=== PATIENT | female | born 1995 | race African-American/Black ===

== ENCOUNTER 2019-02-02 10:29 | Observation (INO) | payer MEDICAID ==
[~2019-02-02] VITALS: Ht 162.6 cm; Wt 104.3 kg
[2019-02-02] MEDS ORDERED: FERR325T6 PO (11:17)
[2019-02-02] MEDS ORDERED: FOLI-43 PO (11:17)
[2019-02-02] MEDS ORDERED: ASPI-1159 PO (11:17)
[2019-02-02] MEDS ORDERED: PNV1TABL50 PO (11:17)
[2019-02-02] MEDS ORDERED: LACTATED RINGERS 1,000 ML IV SCH (11:45)
[2019-02-02 12:24] LABS: CLARITY URINE CLEAR (CLEAR); COLOR URINE YELLOW (YELLOW); KETONES URINE NEGATIVE (NEGATIVE); LEUKOCYTE ESTERASE URINE NEGATIVE (NEGATIVE); NITRITE URINE NEGATIVE (NEGATIVE); OCCULT BLOOD URINE 2+ (NEGATIVE); PROTEIN URINE NEGATIVE (NEGATIVE); SPECIFIC GRAVITY URINE 1.012 (1.005-1.030)
== END 2019-02-02 14:50 | disposition home or self-care (01) ==
LOC: 8 EST LDRP 10:29
PROVIDERS: ADMIT Specialist; ATTEND Specialist
DX: O26.892 Other specified pregnancy related conditions, second trimester (principal); R10.30 Lower abdominal pain, unspecified; O42.912 Preterm premature rupture of membranes, unspecified as to length of time between rupture and onset of labor, second trimester; Z3A.25 25 weeks gestation of pregnancy
CPT/HCPCS: 76805; 81003; G0378